=== PATIENT | female | born 1960 | race Caucasian/White ===

== ENCOUNTER 2016-10-20 19:12 | Inpatient (IN) | payer MEDICARE, OTHER ==
[2016-10-20] MEDS ORDERED: LORazepam 2 MG TAB PO PRN (23:00)
[2016-10-21 06:00] VITALS: BP 131/90; PULSE 82; RESP 16; TEMP 97.2; O2SAT 94
[2016-10-21] MEDS ORDERED: LEVO75TA3 PO (07:18)
[2016-10-21] MEDS ORDERED: VENL75XR PO (07:21)
[2016-10-21] MEDS ORDERED: IPRASOL INH (07:21)
[2016-10-21] MEDS ORDERED: VENTAER INH (07:21)
[2016-10-21] MEDS ORDERED: BACL10TA PO (11:08)
[2016-10-21] MEDS ORDERED: HYDR-3366 PO (11:08)
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
[2016-10-21] MEDS ORDERED: MAGNESIUM HYDROXIDE SUSP 30 ML CUP PO PRN (14:45)
[2016-10-21] MEDS ORDERED: LORazepam 2 MG/ML VIAL IM PRN (14:45)
[2016-10-21] MEDS ORDERED: diphenhydrAMINE HCL 50 MG CAP PO PRN (14:45)
[2016-10-21] MEDS ORDERED: BENZTROPINE MESYLATE 2 MG/2 ML VIAL IM PRN (14:45)
[2016-10-21] MEDS ORDERED: ALUMINUM/MAGNESIUM/SIMETH 30 ML CUP PO PRN (14:45)
[2016-10-21] MEDS ORDERED: ACETAMINOPHEN 325 MG TAB PO PRN (14:45)
[2016-10-21] MEDS ORDERED: BENZTROPINE MESYLATE 1 MG TAB PO PRN (14:45)
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
[2016-10-21] MEDS: HEPARIN SODIUM - SQ 10,000 UNITS/ML VIAL SQ SCH (19:30)
[2016-10-21] MEDS: ACETAMINOPHEN/HYDROcodone 325 MG/10 MG TAB PO PRN (19:30)
[2016-10-21 20:00] VITALS: BP 96/76; PULSE 94; RESP 18; TEMP 97.7; O2SAT 96
[2016-10-21] MEDS: LORazepam 0.5 MG TAB PO PRN (20:00)
[2016-10-22] MEDS: HEPARIN SODIUM - SQ 10,000 UNITS/ML VIAL SQ SCH ×3 (01:00→17:37)
[2016-10-22] MEDS: ACETAMINOPHEN/HYDROcodone 325 MG/10 MG TAB PO PRN ×4 (01:08→21:59)
[2016-10-22 06:00] VITALS: BP 115/79; PULSE 90; RESP 18; TEMP 97.1; O2SAT 95
[2016-10-22] MEDS: LEVOTHYROXINE SODIUM 75 MCG TAB PO SCH (06:00)
[2016-10-22 08:10] LABS: AUTOMATED NEUTROPHIL # 7.9 TH/MM3 (1.8-7.7); BASOPHIL % 0.2 % (0.0-2.0); EOSINOPHIL # 0.7 TH/MM3 (0-0.4); EOSINOPHIL % 5.5 % (0.0-4.0); HEMATOCRIT 43.5 % (35.0-46.0); LYMPH % 23.5 % (9.0-44.0); LYMPHOCYTE # 2.9 TH/MM3 (1.0-4.8); MEAN CELL VOLUME 88.2 FL (80.0-100.0); MEAN CORPUSCULAR HEMOGLOBIN 29.2 PG (27.0-34.0); MEAN CORPUSCULAR HGB CONC 33.1 % (32.0-36.0); MONO % 7.9 % (0.0-8.0); NEUT % 62.9 % (16.0-70.0); PLATELET COUNT 187 TH/MM3 (150-450); RED BLOOD COUNT 4.93 MIL/MM3 (4.00-5.30); RED CELL DISTRIBUTION WIDTH 15.3 % (11.6-17.2); WHITE BLOOD COUNT 12.5 TH/MM3 (4.0-11.0)
[2016-10-22 08:13] LABS: HEMO FLAGS AUTO DIFF
[2016-10-22 08:38] LABS: ANION GAP 8 MEQ/L (5-15); AST (GOT) 17 U/L (15-37); BICARBONATE 29.1 MEQ/L (21.0-32.0); BLOOD UREA NITROGEN 13 MG/DL (7-18); CHLORIDE 102 MEQ/L (98-107); GLOMERULAR FILTRATION RATE 229 ML/MIN (>89); POTASSIUM 3.4 MEQ/L (3.5-5.1); SODIUM (NA) 139 MEQ/L (136-145)
[2016-10-22 08:49] LABS: ALKALINE PHOSPHATASE 57 U/L (45-117); ALT (GPT) 16 U/L (10-53); HDL CHOLESTEROL 30.5 MG/DL (40.0-60.0); LDL CHOLESTEROL 116 MG/DL (0-99); TOTAL BILIRUBIN ADULT 0.5 MG/DL (0.2-1.0)
[2016-10-22] MEDS: VENLAFAXINE HCL XR 75 MG CAP PO SCH (08:58)
[2016-10-22] MEDS: LORazepam 0.5 MG TAB PO PRN ×2 (08:58→21:58)
[2016-10-22] MEDS: PANTOPRAZOLE SOD 40 MG DELAYED RELEASE TAB PO SCH (08:59)
[2016-10-22] MEDS ORDERED: NICOTINE 21 MG/24 HR PATCH T-DERMAL SCH (09:00)
[2016-10-22] MEDS ORDERED: REMOVE OLD NICOTINE PATCH T-DERMAL SCH (09:00)
[2016-10-22] MEDS ORDERED: POTASSIUM CHLORIDE 20 MEQ CONTROLLED RELEASE TAB PO ONE (09:00)
[2016-10-22 09:02] LABS: CORRECTED NUCLEATED RBC 1 /100 WBC (0-0); EOSINOPHILS 6 % (0-4); MYELOCYTES 3 % (0-0); NEUTROPHIL # MANUAL DIFF 7.6 TH/MM3 (1.8-7.7); POLYS (SEG NEUTROPHILS) 58 % (16-70); WBC DIFF SAMPLE 100
[2016-10-22 09:03] LABS: PLATELET ESTIMATE SMEAR NORMAL (NORMAL); PLATELET MORPHOLOGY NORMAL (NORMAL)
[2016-10-22 09:04] LABS: SCAN/DIFF FINAL DIFF MANUAL
--- NOTE | 2016-10-22 10:03 | HHI.PYPN ---
Subjective Remarks Patient seen and examined. Chart reviewed. Case discussed with nursing staff reports patient is denying suicidal ideation but affect remains little flat. Case also discussed with occupational therapist. On my examination today, patient is somewhat discharge focused. She describes her mood as "pretty darn good." Denies any SI, intent or plan. Patient is somewhat irritable, particularly with ongoing hospital stay, and I explain the purpose is to generate a more meaningful suicide risk assessment. She denies side effects from medications. Declines medication adjustment at this time. With the patient's permission, I did endeavor to obtain collateral from patient' s caregiver and friend, Angely Lemus at [phone]. I left a requesting a call back. Review of Systems Except as stated in HPI: all other systems reviewed are Neg Objective Alert: Yes Snow: Person, Place, Date, Situation Mood: Calm Affect: Other (slightly irritable) Memory Intact: Comment (intact on clinical exam) Hallucinations: Other (no AVH) Delusions: No Delusion Type: Other (no delusions) Suicidal: Ideation (denies SI) Homicidal: Ideation (no HI) Insight/Judgement Remains unclear pending further observation Remarks Thought processes linear. Speech within normal limits for rate, tone and volume. Grooming and hygiene fair. Labs Test 10/22/16 06:07 White Blood Count 12.5 TH/MM3 Red Blood Count 4.93 MIL/MM3 Hemoglobin 14.4 GM/DL Hematocrit 43.5 % Mean Corpuscular Volume 88.2 FL Mean Corpuscular Hemoglobin 29.2 PG Mean Corpuscular Hemoglobin 33.1 % Concent Red Cell Distribution Width 15.3 % Platelet Count 187 TH/MM3 Mean Platelet Volume 8.8 FL Neutrophils (%) (Auto) 62.9 % Lymphocytes (%) (Auto) 23.5 % Monocytes (%) (Auto) 7.9 % Eosinophils (%) (Auto) 5.5 % Basophils (%) (Auto) 0.2 % Neutrophils # (Auto) 7.9 TH/MM3 Lymphocytes # (Auto) 2.9 TH/MM3 Monocytes # (Auto) 1.0 TH/MM3 Eosinophils # (Auto) 0.7 TH/MM3 Basophils # (Auto) 0.0 TH/MM3 CBC Comment AUTO DIFF Differential Total Cells 100 Counted Neutrophils % (Manual) 58 % Lymphocytes % 23 % Monocytes % 10 % Eosinophils % 6 % Neutrophils # (Manual) 7.6 TH/MM3 Myelocytes 3 % Nucleated Red Blood Cells 1 /100 WBC Differential Comment FINAL DIFF MANUAL Platelet Estimate NORMAL Platelet Morphology Comment NORMAL Sodium Level 139 MEQ/L Potassium Level 3.4 MEQ/L Chloride Level 102 MEQ/L Carbon Dioxide Level 29.1 MEQ/L Anion Gap 8 MEQ/L Blood Urea Nitrogen 13 MG/DL Creatinine 0.30 MG/DL Estimat Glomerular Filtration 229 ML/MIN Rate Random Glucose 66 MG/DL Calcium Level 8.3 MG/DL Total Bilirubin 0.5 MG/DL Aspartate Amino Transf 17 U/L (AST/SGOT) Alanine Aminotransferase 16 U/L (ALT/SGPT) Alkaline Phosphatase 57 U/L Total Protein 5.9 GM/DL Albumin 2.7 GM/DL Triglycerides Level 269 MG/DL Cholesterol Level 200 MG/DL LDL Cholesterol 116 MG/DL HDL Cholesterol 30.5 MG/DL Cholesterol/HDL Ratio 6.55 RATIO Free Thyroxine 1.00 NG/DL Thyroid Stimulating Hormone 6.290 uIU/ML 3rd Gen Labs reviewed. TSH elevated but free T4 within normal limits. Repeat CBC and BMP ordered for tomorrow morning. Vitals/IOs Vital Signs Date Time Temp Pulse Resp B/P Pulse Ox O2 Delivery O2 Flow Rate FiO2 10/22/16 06:00 97.1 90 18 115/79 95 Intake and Output 10/21/16 10/21/16 10/22/16 08:00 16:00 00:00 Intake Total 360 ml 720 ml Output Total 400 ml 850 ml Balance -40 ml -130 ml Assessment & Plan Problem List: (1) Major depressive disorder ICD Code: F32.9 (2) Overdose ICD Code: T50.901A Assessment & Plan Continue Effexor XR 75 mg daily. Appreciate hospitalist commercial solar sales consultant input. Continue to monitor on the inpatient unit. Continue other medications and care as ordered. Justification for Cont. Inpt. Monitoring for impairment in safety. Discharge Planning Pending outcome of observation. If reassuring collateral can be obtained in the observation period is benign, I think the patient could be discharged within the next 1-3 days. Request HC Surrog/Guard Advoc?: No Problem Qualifiers (1) Major depressive disorder: Qualified Code: F32.4 - Major depressive disorder with single episode, in partial remission (2) Overdose: Luis Eduardo Fairchild MD Oct 22, 2016 10:03
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
[2016-10-22 17:28] LABS: HEMOGLOBIN A1a 1.5 %; HEMOGLOBIN A1b 1.6 %; HEMOGLOBIN Ao 85.9 %; HEMOGLOBIN LA1C 1.7 %; HEMOGLOBIN P3 3.6 %
[2016-10-22 20:01] LABS: GLUCOSE,URINE NEG (NEG); KETONE, URINE NEG (NEG)
[2016-10-22 20:02] LABS: BLOOD, URINE TRACE (NEG); NITRITE,URINE NEG (NEG); PH, URINE 6.5 (5.0-8.5)
[2016-10-22 20:03] LABS: BACTERIA, URINE RARE /hpf; CULTURE IF INDICATED CATH CULTURE IND; RBC, URINE 0-3 /hpf (0-3); WBC, URINE 0-2 /hpf (0-5)
[2016-10-22 20:04] LABS: URINE COLOR STRAW (YELLW/STRAW)
[2016-10-22 20:10] LABS: COMMENT (UR) CATH-CULTURE IND
[2016-10-23] MEDS: HEPARIN SODIUM - SQ 10,000 UNITS/ML VIAL SQ SCH ×2 (01:39→08:57)
[2016-10-23] MEDS: LEVOTHYROXINE SODIUM 75 MCG TAB PO SCH (05:40)
[2016-10-23] MEDS: ACETAMINOPHEN/HYDROcodone 325 MG/10 MG TAB PO PRN (05:51)
[2016-10-23 06:22] VITALS: BP 104/72; PULSE 89; RESP 16; TEMP 98.4; O2SAT 98
[2016-10-23 08:44] LABS: AUTOMATED NEUTROPHIL # 7.7 TH/MM3 (1.8-7.7); BASOPHIL # 0.1 TH/MM3 (0-0.2); BASOPHIL % 0.6 % (0.0-2.0); EOSINOPHIL # 0.7 TH/MM3 (0-0.4); EOSINOPHIL % 5.7 % (0.0-4.0); HEMATOCRIT 42.7 % (35.0-46.0); HEMO FLAGS AUTO DIFF; LYMPH % 20.4 % (9.0-44.0); LYMPHOCYTE # 2.4 TH/MM3 (1.0-4.8); MEAN CELL VOLUME 88.1 FL (80.0-100.0); MEAN CORPUSCULAR HEMOGLOBIN 28.8 PG (27.0-34.0); MEAN CORPUSCULAR HGB CONC 32.7 % (32.0-36.0); MONO % 7.4 % (0.0-8.0); NEUT % 65.9 % (16.0-70.0); PLATELET COUNT 155 TH/MM3 (150-450); RED BLOOD COUNT 4.85 MIL/MM3 (4.00-5.30); WHITE BLOOD COUNT 11.7 TH/MM3 (4.0-11.0)
[2016-10-23] MEDS: PANTOPRAZOLE SOD 40 MG DELAYED RELEASE TAB PO SCH (08:46)
[2016-10-23] MEDS: VENLAFAXINE HCL XR 75 MG CAP PO SCH (08:46)
[2016-10-23] MEDS ORDERED: CIPROFLOXACIN 500 MG TAB PO SCH (09:00)
[2016-10-23 09:09] LABS: EOSINOPHILS 10 % (0-4); NEUTROPHIL # MANUAL DIFF 6.9 TH/MM3 (1.8-7.7); PLATELET ESTIMATE SMEAR NORMAL (NORMAL); PLATELET MORPHOLOGY NORMAL (NORMAL); POLYS (SEG NEUTROPHILS) 59 % (16-70); POTASSIUM 3.5 MEQ/L (3.5-5.1); SCAN/DIFF FINAL DIFF MANUAL; WBC DIFF SAMPLE 100
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
== END 2016-10-23 16:15 | disposition home or self-care (01) | DRG 881 ==
LOC: H250 22:25
PROVIDERS: ADMIT Psychiatry & Neurology Psychiatry; ATTEND Psychiatry & Neurology Psychiatry
DX: F32.9 Major depressive disorder, single episode, unspecified (principal); G82.50 Quadriplegia, unspecified; L89.159 Pressure ulcer of sacral region, unspecified stage; S14.106S Unspecified injury at C6 level of cervical spinal cord, sequela; E83.51 Hypocalcemia; E03.9 Hypothyroidism, unspecified; V89.2XXS Person injured in unspecified motor-vehicle accident, traffic, sequela; Y92.410 Unspecified street and highway as the place of occurrence of the external cause; E78.1 Pure hyperglyceridemia; E87.6 Hypokalemia; K21.9 Gastro-esophageal reflux disease without esophagitis; Z87.891 Personal history of nicotine dependence; Z91.5 Personal history of self-harm; Z98.1 Arthrodesis status
CPT/HCPCS: 80048; 80053; 80061; 81001; 83036; 83735; 84155; 84439; 84443; 85007; 85027; 87086; J1644